=== PATIENT | female | born 1960 | race Caucasian/White ===

== ENCOUNTER → 2019-03-26 | Outpatient (CLI) | payer OTHER ==
--- NOTE | 2019-03-26 16:15 | MR ---
EXAMINATION TYPE: MR brain wo DATE OF EXAM: 03/26/2019 COMPARISON: NONE HISTORY: Headache, cervicalgia TECHNIQUE: T1-weighted sagittal, T2, FLAIR, and diffusion axial, and T2 coronal coronal views of the brain are submitted. FINDINGS: There is no evidence of acute ischemia. The ventricles, basal cisterns, and sulci overlying the conv exities are consistent with the patient's age. There is no mass effect. Craniocervical junction maintained. Sella turcica has a normal appearance. No cerebellopontine angle mass. Nasal septal deviation noted with very mild changes of chronic sinusi tis. Prominence areas of signal in the basal ganglia most likely related to prominent [place] Antonio s paces rather than remote lacunar infarcts. No significant abnormal signal seen within the white matte r. Partially empty sella turcica incidentally noted. IMPRESSION: 1. No acute intracranial process. 2. Incidental note made of partially empty sella turcica. EXAMINATION TYPE: MR cervical spine wo DATE OF EXAM: 03/26/2019 COMPARISON: NONE HISTORY: Headache, cervicalgia TECHNIQUE: T1 sagittal and coronal, T2 sagittal, and gradient echo axial views of the cervical spine are submitted. FINDINGS: The cranial cervical junction is preserved. There is no abnormal signal seen within the sp inal cord or paraspinal soft tissues. At C2-3 there is no disc herniation or canal stenosis. No foraminal encroachment. At C3-4 there is no disc herniation or canal stenosis. No foraminal encroachment At C4-5 there is no disc herniation or canal stenosis. No foraminal encroachment At C5-6 there is moderate degenerative disc disease with bilateral uncovertebral joint hypertrophy. M oderate left and moderate to severe right-sided foraminal encroachment. Broad-based disc bulging capp ed by spur results in mild effacement of thecal sac but no significant canal stenosis. No focal disc herniation. At C6-7 there is degenerative disc disease and uncovertebral joint hypertrophy. No canal stenosis, di sc herniation or foraminal encroachment. At C7-T1 there is no disc herniation or canal stenosis. No foraminal encroachment IMPRESSION: 1. Moderate to severe degenerative disc disease C5-C6 with prominent uncovertebral joint hypertrophy resulting in moderate left and moderate to severe right foraminal encroachment. Broad-based disc bul ging capped by spur results in mild effacement of thecal sac but no canal stenosis
== END | disposition home or self-care (01) ==
LOC: RADMRIMAIN 15:11
PROVIDERS: ATTEND Family Medicine
DX: M50.80 Other cervical disc disorders, unspecified cervical region (principal); M50.322 Other cervical disc degeneration at C5-C6 level; G89.29 Other chronic pain
CPT/HCPCS: 70551; 72141

== ENCOUNTER → 2020-04-21 | Outpatient (CLI) | payer OTHER ==
[2020-04-21 22:55] LABS: HCT 38.9 % (37.2-46.3); HGB 12.3 g/dL (12.0-15.0); MCH 31.2 pg (27.0-32.0); MCHC 31.6 g/dL (32.0-37.0); MCV 98.7 fL (80.0-97.0); Mean Platelet Volume 10.5 fL (9.5-12.2); Platelet Count 210 X 10*3/uL (140-440); RBC 3.94 X 10*6/uL (4.10-5.20); RDW 13.6 % (11.5-14.5)
[2020-04-22 01:53] LABS: African American GFR (CKD) 110.7 (60.0-200.0); Albumin 4.8 g/dL (3.80-4.90); Albumin/Globulin Ratio 3.2 (1.60-3.17); Anion Gap 7.7 mmol/L (4.00-12.00); BUN/Creat Ratio 12.86 Ratio (12.00-20.00); Calcium 8.9 mg/dL (8.7-10.3); Carbon Dioxide 27.3 mmol/L (21.6-31.8); Globulin 1.5 g/dL (1.6-3.3); Non-African American GFR(CKD) 95.5 (60.0-200.0); Potassium 4.1 mmol/L (3.5-5.5); Total Bilirubin 0.2 mg/dL (0.2-1.2); Total Protein 6.3 g/dL (6.2-8.2)
[2020-04-22 02:01] LABS: T4, Free (Free Thyroxine) 0.9 ng/dL (0.80-1.80)
[2020-04-22 02:04] LABS: Folate, Serum 6.2 ng/mL
== END | disposition home or self-care (01) ==
LOC: LABWHC1 15:05
PROVIDERS: ATTEND Nurse Practitioner Family
DX: R41.3 Other amnesia (principal); E55.9 Vitamin D deficiency, unspecified; R53.2 Functional quadriplegia
CPT/HCPCS: 36415; 80053; 82306; 82607; 82746; 83090; 84439; 84443; 84481; 85027

== ENCOUNTER → 2020-04-21 | Outpatient (CLI) | payer OTHER ==
--- NOTE | 2020-04-25 10:29 | MM ---
Reason for exam: screening (asymptomatic). Last mammogram was performed 10 years and 7 months ago. History: Family history of breast cancer in mother at age 50 and breast cancer in aunt at age 50. Saline implants in both breasts, 1995. Took estrogen for 2 years beginning at age 34. Physical Findings: A clinical breast exam by your physician is recommended on an annual basis and results should be correlated with mammographic findings. MG 3D Screen Mammo Imp/Cad Bilateral CC, MLO, and ID view(s) were taken. Prior study comparison: September 28, 2009, bilateral diagnostic digital mammog. September 08, 2008, bilateral diagnostic digital mammog. The breast tissue is heterogeneously dense. This may lower the sensitivity of mammography. Bilateral retropectoral implants. Significant interval decrease in breast size. No significant changes when compared with prior studies. ASSESSMENT: Benign, BI-RAD 2 RECOMMENDATION: Routine screening mammogram of both breasts in 1 year.
== END | disposition home or self-care (01) ==
LOC: RADMAMWWP 15:07
PROVIDERS: ATTEND Family Medicine
DX: Z12.31 Encounter for screening mammogram for malignant neoplasm of breast (principal); Z98.82 Breast implant status
CPT/HCPCS: 77063; 77067